=== PATIENT | female | born 1960 | race African-American/Black ===

== ENCOUNTER 2017-05-16 10:53 | Observation (INO) | payer OTHER ==
[2017-05-16 12:03] LABS: Hematocrit 41 % (35-47); Hemoglobin 13.8 g/dl (12.0-16.0); Mean Corpuscular HGB Conc 34 g/dl (31-36); Mean Corpuscular Hemoglobin 31 pg (27-31); Mean Corpuscular Volume 92 fL (80-97); Mean Platelet Volume 7 um3 (7.4-10.4); Red Blood Count 4.45 10^6/ul (4.0-5.4); Red Cell Distribution Width 15 % (10.5-15); White Blood Count 9.3 10^3/ul (3.5-10.8)
[2017-05-16 12:17] LABS: ALT 17 U/L (7-52); AST 19 U/L (13-39); Albumin 3.9 g/dL (3.2-5.2); Alkaline Phosphatase 54 U/L (34-104); Anion Gap 6 mmol/L (2-11); BUN/Creatinine Ratio 18.5 (8-20); Blood Urea Nitrogen 17 mg/dL (6-24); C Reactive Protein 2.53 mg/L (< 5.00); CO2 Carbon Dioxide 28 mmol/L (22-32); Chloride 103 mmol/L (101-111); EGFR African American 81.8 (>60); EGFR Non-African American 63.6 (>60); Globulin 3.3 g/dL (2-4); Glucose 103 mg/dL (70-100); Lipase < 10 U/L (11.0-82.0); Potassium 3.9 mmol/L (3.5-5.0); Sodium 137 mmol/L (133-145); Total Protein 7.2 g/dL (6.4-8.9)
--- NOTE | 2017-05-16 12:18 | RAD ---
HISTORY: Chest pain COMPARISONS: None TECHNIQUE: Multiple transverse and longitudinal ultrasound images were obtained of the right upper quadrant. FINDINGS: LIVER: The liver is normal in dimensions and echogenicity. Normal hepatic and portal venous blood flow is duplicated with color flow imaging. There is no gross intrahepatic biliary duct dilatation. GALLBLADDER AND EXTRAHEPATIC BILIARY DUCT: The gallbladder is normal in appearance without intraluminal stones or other soft tissue masses. There is no pericholecystic fluid or gallbladder wall thickening. The common bile duct measures a maximum diameter of 5 mm. PANCREAS: The portions of the pancreas not obscured by bowel gas are normal in appearance. RIGHT KIDNEY: The right kidney is normal in size, morphology and echogenicity. AORTA AND IVC: The visualized portions are normal in appearance and not pathologically dilated. IMPRESSION: Normal ultrasound of the right upper quadrant.
[2017-05-16] MEDS ORDERED: Iohexol 300* (CONTRAST) 10 ML SDV IV ONE (12:28)
--- NOTE | 2017-05-16 15:09 | RAD ---
Indication: Abdominal pain. Contrast: Administered 96.9 ml of OMNIPAQUE 300 mgi/ml. CT of the abdomen and pelvis was performed after oral contrast administration. Coronal and sagittal reconstructed images were obtained. The lung bases demonstrate no pleural fluid, nodules or masses. Heart is of normal size without evidence of pericardial effusion. Liver is normal in size. No focal lesions or intrahepatic ductal dilatation is noted. Spleen is normal in size. The gallbladder demonstrates no calcified gallstones. Common duct is not dilated. Pancreas demonstrates no mass or pancreatic duct dilatation. There is a nodule in the left adrenal gland measuring 16 mm likely representing an adenoma. The kidneys demonstrate symmetric nephrograms. Cortical cyst left kidney measuring up to 13 mm. No hydronephrosis of either kidney is noted. Atherosclerotic aorta is noted. No dilated loops of bowel are noted. The colon demonstrates contrast within it. No evidence of bowel obstruction. The appendix is visualized and is normal. The uterus is otherwise unremarkable. No hernias are noted. IMPRESSION: No evidence of bowel obstruction is noted. Normal appendix. No masses or fluid collections are noted.
[2017-05-16 15:21] LABS: Urine Bacteria Absent (Absent); Urine Bilirubin Negative (Negative); Urine Glucose Negative (Negative); Urine Nitrite Negative (Negative)
[2017-05-16] MEDS ORDERED: Temazepam CAP* 15 MG PO PRN (16:23)
[2017-05-16] MEDS ORDERED: Acetaminophen TAB* 325 MG PO PRN (16:23)
--- NOTE | 2017-05-17 01:38 | HP ---
CC: Dr. Pedroza * HISTORY AND PHYSICAL: DATE OF ADMISSION: 05/16/17 PRIMARY CARE PHYSICIAN: Dr. Pedroza. CHIEF COMPLAINT: Abdominal pain. HISTORY OF PRESENT ILLNESS: Kathia Bach is a 56-year-old female with history of sarcoidosis who stated that she had been having problems with abdominal cramping for the past 2 weeks since she was at the outdoor concert that lasted a couple of days. The patient stated that her stools are softer than usual, but they are regular and daily. She did not notice stool discoloration. She did not notice fevers or chills, but today when she had abdominal pain, the cramp was so severe that she was sweating. She also mentioned that the abdominal pain is radiating to her chest. On the basis of that, the ER physician requested for the patient to be placed for overnight observation to rule out angina symptoms. The patient denies shortness of breath with exertion and denies chest pain with exertion. The abdominal pain is not associated with food. She has not lost weight and her appetite had been good. PAST MEDICAL HISTORY: 1. History of sarcoidosis. 2. History of asthma as a child. 3. History of arthritis that the patient thinks is related to sarcoidosis. MEDICATIONS: Include Breo ellipta inhaler on a daily basis as needed. ALLERGIES: NONSTEROIDAL ANTI-INFLAMMATORY MEDICATIONS. FAMILY HISTORY: Positive for mother who of lung cancer, and father unknown. The patient's brother has lupus, hypertension, and diabetes. SOCIAL HISTORY: The patient smokes 2 to 3 cigarettes a day and she has been doing so ever since she turned 13. She drinks 5 glasses of alcoholic beverage a week. She denies any drug use. 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 She is single. She has no surrogate and does not wish to name one. 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 REVIEW OF SYSTEMS: Please see history of present illness. All the remaining 14 systems were reviewed with the patient and were otherwise negative. PHYSICAL EXAMINATION GENERAL: The patient is a 56-year-old female, who is in no acute distress. Alert, awake, and oriented x3. VITAL SIGNS: Blood pressure of 114/76, heart rate of 69 and regular, respiratory rate 16, oxygen saturation 97% on room air, temperature 97.8. HEENT: Head: Atraumatic, normocephalic. Eyes: Pupils equal, round, and reactive to light and accommodation. Oropharynx clear. Mucosa moist. NECK: Supple. No JVD, no bruits bilaterally. RESPIRATORY: Clear to auscultation bilaterally. CARDIOVASCULAR: Regular rate and rhythm. No murmur. ABDOMEN: Soft, nontender. Bowel sounds are hyperactive, present in all 4 quadrants. It is nontender on evaluation and no hepatomegaly palpated. EXTREMITIES: There is no edema. Pulses +2 bilaterally. No clubbing or cyanosis. NEUROLOGIC: Speech clear. Cranial nerves II through XII grossly intact. Motor strength is 5/5 bilaterally. PSYCHIATRIC: Pleasant and cooperative with evaluation with no evidence of anxiety or depression. SKIN: On evaluation of the skin, no ecchymotic areas or rashes noted. DIAGNOSTIC STUDIES/LAB DATA: Laboratory data showed white blood cell count of 9.3, hemoglobin of 13.8, hematocrit of 41, and platelets of 349. Sodium was 137, potassium 3.9, chloride 103, carbon dioxide 28, BUN 17, creatinine 0.92. Liver function tests were unremarkable. Lipase is below 10. Urinalysis showed trace ketones, trace esterase, absent bacteria. Gallbladder ultrasound, impression: "Normal ultrasound of the right upper quadrant." CT of the abdomen and pelvis obtained with contrast, impression: "No evidence of bowel obstruction is noted. Normal appendix. No masses or fluid collections are noted." EKG shows sinus bradycardia with a heart rate of 58 beats per minute with normal axis and no ST changes. The patient's C-reactive protein was 2.5. ASSESSMENT AND PLAN: 1. Crampy abdominal pain for the past 2 weeks in a patient who stated that it originally developed when she was at an outdoor concert that lasted a couple of days. At this point, there is no evidence that indicates inflammation since the patient's CRP is within normal limits. The patient's troponin had been unremarkable and EKG as well. As per the ER physician's recommendation, the patient is going to be placed on overnight observation on telemetry monitored bed with followup troponins and if it does continue to be negative, the patient is going to undergo a cardiac stress test in the morning. Furthermore, I discussed with the patient that if her cardiac stress test is negative and she is discharged home, she is to follow up with her primary care provider in regards of screening colonoscopy. 2. For DVT prophylaxis, the patient is low risk and ambulation is going to be encouraged. 3. For history of asthma, the patient is going to be observed. Currently, no wheezing appreciated. No need for inhaler. 4. The patient's code status is full. The patient wishes not to name a surrogate. TIME SPENT: Approximately 55 minutes were spent on admission of the patient, more than half the time was spent [id number] with the patient during the interview and physical exam. [id number]/[facility] #: [id number] JAKOB
--- NOTE | 2017-05-17 10:54 | RAD ---
Edited for charges. Indication: Chest pain. Myocardial perfusion scan was performed utilizing 1 day protocol. Rest myocardial perfusion was performed after intravenous injection of 10.2 mCi of technetium 99 and tetrofosmin. Treadmill stress study was performed and the maximum heart rate achieved was 95% of the maximum predicted value. There is homogeneous distribution of the radiotracer throughout the left ventricle. There is a small area of photopenia in the septum which appears to reverse on the rest images. A small area of septal reversible change should BE considered. The ventricle is normal in size. The ejection fraction at stress is 73% with no focal wall motion abnormality. IMPRESSION: There may be a small area of reversible change and photopenia in the septum. Normal ejection fraction. ASSESSMENT: Low risk Based on imaging criteria from ACC/AHA 2002 Guideline Update for the Management of Patients With Chronic Stable Angina Table 23. Noninvasive Risk Stratification. MTDD
[2017-05-17 11:20] VITALS: BP 133/84
--- NOTE | 2017-05-18 04:15 | DS ---
CC: Dr. Pedroza * DISCHARGE SUMMARY: DATE OF ADMISSION: 05/16/17 DATE OF DISCHARGE: 05/17/17 PRIMARY CARE PROVIDER: Dr. Pedroza. DISCHARGE DIAGNOSIS: Chest pain that was radiating from abdominal cramping. SECONDARY DIAGNOSES: 1. History of sarcoidosis. 2. History of asthma. MEDICATIONS: At discharge include: Breo Ellipta on a daily basis as needed. LABORATORY DATA: Performed during the hospital stay: Troponins throughout the patient's hospital stay were 0. The patient's CT abdomen and pelvis and gallbladder ultrasound as mentioned in the history of present illness and dictated by myself on 05/16/17. Nuclear medicine cardiac stress test obtained on 05/17/17 showed, impression: "There may be a small area of reversible change and photopenia at the septum. Normal ejection fraction of 73% with no focal wall motion abnormality. Assessment: Low risk." HOSPITALIZATION COURSE: Kathia Bach is a 56-year-old female with history of asthma and sarcoidosis who presented complaining of abdominal cramping that had been ongoing occasionally for the past 2 weeks. For further details of the patient's presentation please see history of present illness dictated at admission. Shortly, patient complained abdominal cramping, sometimes radiating to the chest and due to that the ER physician requested the patient to be placed on overnight observation with a stress test in the morning. The patient underwent a cardiac stress test after her troponins continued to be negative, which showed low risk and good ejection fraction. There was a small questionable area of photopenia at the septum. I discussed with the patient and usually very small areas of photopenia are not related to ischemia and they are not an indication for further cardiac intervention. The patient's troponins have been negative and she complained no chest pains throughout the hospital stay. She is recommended to follow with primary care provider and screening colonoscopy recommended in the near future. PHYSICAL EXAMINATION: At discharge unchanged from admission. [id number]/[facility] #: [id number] [facility]ICAL CENTERDonald
--- NOTE | 2017-05-19 14:27 | ED ---
aPrveen Sousa Rebecca, scribed for Amanuel Mann MD on 05/16/17 at 1137 . Abdominal Pain/Female - HPI Summary HPI Summary: Pt is a 56 y/o F who presents to ED c/o epigastric and umbilical pain with radiation to the back. Sx began 2 weeks ago and have been intermittent since onset, typically lasting a few hours. Sx usually begin at night while sleeping. Most recent episode started today at 0630. Pain is currently not present, though when present, pain is severe and characterized as cramps. Sx aggravated by movement, alleviated by nothing, unchanged by eating and BM. Additionally c/ o diaphoresis secondary to pain, nausea and chest pain. CP has been present for 2 weeks, intermittently, described as "it feels like the pain you get when you exercise." Denies dysuria, urine frequency and hematuria. Has not had a cardiac workup for current pain. Last stress test a few years ago. FHx "heart issues" ( brother), lupus and HTN. - History of Current Complaint Chief Complaint: EDAbdPain Stated Complaint: ABD PAIN Time Seen by Provider: 05/16/17 11:25 Hx Obtained From: Patient Onset/Duration: Lasting Weeks - 2 weeks, Still Present Timing: Intermittent Episode Lasting - Hours Severity Initially: Severe Severity Currently: None Pain Intensity: 0 Pain Scale Used: 0-10 Numeric Location: Epigastric, Umbilical Radiates: Yes Radiates to: Back Character: Cramping Aggravating Factor(s): Movement Alleviating Factor(s): Nothing Associated Signs and Symptoms: Positive: Diaphoresis, Chest Pain - Intermittent for 2 weeks, Nausea. Negative: Urinary Symptoms Allergies/Adverse Reactions: Allergies Allergy/AdvReac Type Severity Reaction Status Date / Time NSAIDs Allergy Anaphylatic Verified 05/16/17 11:31 Shock CATS Allergy Severe Wheezing Uncoded 05/16/17 11:31 PMH/Surg Hx/FS Hx/Imm Hx Endocrine/Hematology History: Reports: Hx Blood Transfusions - at , Other Endocrine/Hematological Disorders - angioedema Denies: Hx Anticoagulant Therapy, Hx Diabetes, Hx Thyroid Disease, Hx Anemia Cardiovascular History: Reports: Other Cardiovascular Problems/Disorders - SARCOIDOSIS RECENTLY DX Denies: Hx Angina, Hx Congestive Heart Failure, Hx Coronary Artery Disease, Hx Hypercholesterolemia, Hx Hypertension, Hx Myocardial Infarction, Hx Pacemaker /ICD, Hx Valvular Heart Disease Respiratory History: Reports: Hx Asthma Denies: Hx Chronic Obstructive Pulmonary Disease (COPD) GI History: Denies: Hx Ulcer Musculoskeletal History: Reports: Other Musculoskeletal History - cervical spine DDD Sensory History: Reports: Hx Contacts or Glasses, Hx Vision Problem Denies: Hx Hearing Aid Opthamlomology History: Reports: Hx Contacts or Glasses, Hx Vision Problem Neurological History: Reports: Hx Headaches Psychiatric History: Denies: Hx Panic Disorder, Hx Substance Abuse - Cancer History Hx Chemotherapy: No Hx Radiation Therapy: No Infectious Disease History: No Infectious Disease History: Denies: Hx Clostridium Difficile, Hx Hepatitis, Hx Human Immunodeficiency Virus (HIV), Hx of Known/Suspected MRSA, Hx Shingles, Hx Tuberculosis, Hx Known/ Suspected VRE, Hx Known/Suspected VRSA, History Other Infectious Disease, Traveled Outside the [place] in Last 30 Days - Family History Known Family History: Positive: Hypertension, Other - "heart issues" (brother), lupus Family History: No FHx of blood clots, IBS, Crohn's - Social History Alcohol Use: Occasionally Substance Use Type: Reports: None Hx Tobacco Use: No Smoking Status (MU): Former Smoker Have You Smoked in the Last Year: No Review of Systems Positive: Skin Diaphoresis. Negative: Fever, Chills Negative: Erythema Negative: Sore Throat Positive: Chest Pain - Intermittent for 2 weeks Negative: Shortness Of Breath, Cough Positive: Abdominal Pain - Epigastric and umiblical with radiation to the back, Nausea. Negative: Vomiting Negative: dysuria, frequency, hematuria Negative: Myalgia, Edema Negative: Rash Neurological: Other - Negative dizziness All Other Systems Reviewed And Are Negative: Yes Physical Exam - Summary Physical Exam Summary: Constitutional: Well-developed, Well-nourished, Alert. (-) Distressed Skin: Warm, Dry HENT: Normocephalic; Atraumatic Eyes: Conjunctiva normal Neck: Musculoskeletal ROM normal neck. (-) JVD, (-) Stridor, (-) Tracheal deviation Cardio: Rhythm regular, rate normal, Heart sounds normal; Intact distal pulses; The pedal pulses are 2+ and symmetric. Radial pulses are 2+ and symmetric. (-) Murmur Pulmonary/Chest wall: Effort normal. (-) Respiratory distress, (-) Wheezes, (-) Rales Abd: Soft, (-) Tenderness, (-) Distension, (-) Guarding, (-) Rebound Musculoskeletal: (-) Edema Lymph: (-) Cervical adenopathy Neuro: Alert, Oriented x3 Psych: Mood and affect Normal Triage Information Reviewed: Yes Vital Signs On Initial Exam: Initial Vitals Temp Pulse Resp BP Pulse Ox 97.8 F 69 18 117/69 100 05/16/17 11:02 05/16/17 11:02 05/16/17 11:02 05/16/17 11:02 05/16/17 11:02 Vital Signs Reviewed: Yes Diagnostics - Vital Signs Vital Signs Temp Pulse Resp BP Pulse Ox 05/16/17 11:02 97.8 F 69 18 117/69 100 - Laboratory Result Diagrams: 05/16/17 11:43 05/16/17 11:43 Lab Statement: Any lab studies that have been ordered have been reviewed, and results considered in the medical decision making process. - CT CT Abd/Pel CT Interpretation: No Acute Changes - No evidence of bowel obstruction is noted. Normal appendix. No masses or fluid collections are noted. CT Interpretation Completed By: Radiologist - Ultrasound No standard instances Ultrasound Interpretation: No Acute Changes - Gallbladder US: Normal ultrasound of the right upper quadrant. Ultrasound Interpretation Completed By: Radiologist - EKG 1225 Cardiac Rate: Bradycardia - 58 bpm EKG Rhythm: Sinus Bradycardia EKG Interpretation: T wave flattening in the lateral leads, No STEMI Re-Evaluation - Re-Evaluation First Eval Re-Evaluation Time: 15:23 Change: Improved Comment: Pt reports she developed the chest pain a half toyin hour before arrival and is currently chest pain free. The upper abdominal pain with diaphoresis developed this morning at 0630. Her brother has a Hx of significant CAD. Second Eval Re-Evaluation Time: 15:50 Change: Unchanged Comment: Reaffirmed with the pt that she is willing to stay. Abdominal Pain Fem Course/Dx - Course Course Of Treatment: Pt is a 56 y/o F who presents to ED c/o intermittent epigastric and umbilical pain with radiation to the back for 2 weeks, charcaterized as crmaps. Sx usually begin at night while sleeping. Pain is currently not present, though when present, pain is severe. Sx aggravated by movement, unchanged by eating and BM. Additionally c/o diaphoresis secondary to pain, nausea and chest pain. CP has been present for 2 weeks, intermittently, described as "similar to the pain from having worked out." Denies dysuria, urine frequency and hematuria. Has not had a cardiac workup for current pain. Last stress test a few years ago. FHx "heart issues" (brother), lupus and HTN. Lipase <10. Gallbladder US and CT Abd/Pel reveal no acute findings. EKG reveals sinus amrita with no STEMI. Discussed care of pt with Dr. Hannon, discussing having the patient admitted for a cardiac workup with hospitalist services. Discussed care of pt with Dr. Beatrice Bello at 1538 who accepts pt for admission. She will be admitted to hospitalist services with Dx of abdominal pain and chest pain, unspecified. The patient understands and agrees. Patient medications reviewed this visit. - Diagnoses Provider Diagnoses: Abdominal pain, Chest pain, unspecified - Provider Notifications Discussed Care Of Patient With: Estefanía Hannon Time Discussed With Above Provider: 15:30 Instructed by Provider To: Other - Discussed having the patient admitted for a cardiac workup with hospitalist services. Discussed care of pt with Dr. Beatrice Bello at 1538 who accepts pt for admission. Discharge - Discharge Plan Condition: Stable Disposition: ADMITTED TO [facility] Referrals: Zi Pedroza MD [Primary Care Provider] - The documentation as recorded by the Parveen lorenzo Rebecca accurately reflects the service I personally performed and the decisions made by me, Amanuel Mann MD.
== END 2017-05-17 11:55 | disposition home or self-care (01) ==
LOC: ED 10:53 → MEDTELE 15:40
PROVIDERS: ADMIT Internal Medicine; ATTEND Internal Medicine
DX: R07.9 Chest pain, unspecified (principal); R10.84 Generalized abdominal pain; R00.1 Bradycardia, unspecified; F17.210 Nicotine dependence, cigarettes, uncomplicated; D86.9 Sarcoidosis, unspecified; M19.90 Unspecified osteoarthritis, unspecified site
CPT/HCPCS: 36415; 74177; 76705; 78452; 80053; 81003; 81015; 83605; 83690; 84484; 85025; 86140; 87086; 93005; 93017; 99284; 99406; A9502; G0378; Q9967

== ENCOUNTER → 2018-11-27 23:53 | Emergency (ER) | payer OTHER ==
[~2018-11-27 23:53] MED LIST: Hydrocortisone INJ* 100 MG VIAL IV ONE; Ketorolac INJ* 30 MG/ML 1 ML VIAL IV PUSH ONE; Metoclopramide IV* 5 MG/ML 2 ML VIAL IV SLOW PU ONE; Morphine VIAL* 10 MG/ML 1 ML VIAL IV ONE; NS 0.9% 1000 ML** 1,000 ML IV ONE; diPHENhydraMINE PO* 25 MG PO ONE
--- NOTE | 2018-11-28 00:51 | ED ---
Headache - HPI Summary HPI Summary: This patient is a 58 year old F presenting to ED with a chief complaint of R- sided headache and R eye pain since earlier today. The CC is described as my head feels like its going to explode right now. She has had an episode like this before about 2 months ago and states that it usually happens whenever she has an autoimmune flare up. The patient rates the pain 8/10 in severity. Symptoms aggravated by chewing. Symptoms alleviated by prednisone drops. Patient reports nausea and photophobia. Her R eye also tears up and is erythematous. Patient denies vomiting and vision loss. Since April 2018, her R eye seems to get swollen and isnt open all the way. She has seen an specialized language instructor before and they say that it doesnt seem to be an issue with her eye and doesnt know what is wrong with her. The patient reports that her eye pressure is alright whenever she sees her and her PCP. Her PCP says that she has an autoimmune disease but doesnt specify. She can see through her R eye but it erythematous. She usually is given prednisone drops (1x in the morning) and her headache goes away within 2 hours. She takes Tylenol, Tumeric, and OTC antihistamine. - History Of Current Complaint Chief Complaint: EDHeadache Stated Complaint: HEADACHE Time Seen by Provider: 11/28/18 00:31 Hx Obtained From: Patient Onset/Duration: Sudden Onset, Started hours ago, Still Present Initially Headache Was: Initial Pain Scale(0-10)= - 8/10 Currently Pain Is: Current Pain Scale(0-10)= - 8/10 Timing: Constant Location of Headache: Other: - R-sided Aggravating Factor: Bright Lights, Other - chewing Allevating Factors: Medication - prednisone drops - Allergies/Home Medications Allergies/Adverse Reactions: Allergies Allergy/AdvReac Type Severity Reaction Status Date / Time mold Allergy Rash Verified 11/27/18 23:59 NSAIDS (Non-Steroidal Allergy See Comment Verified 11/27/18 23:59 Anti-Inflamma CATS Allergy Severe Wheezing Uncoded 11/27/18 23:59 enviromental Allergy Wheezing Uncoded 11/27/18 23:59 Home Medications: Home Medications Tylenol 650 mg PO Q6HR PRN 11/28/18 [History Confirmed 11/28/18] PMH/Surg Hx/FS Hx/Imm Hx Endocrine/Hematology History: Reports: Hx Blood Transfusions - at , Other Endocrine/Hematological Disorders - angioedema Denies: Hx Anticoagulant Therapy, Hx Diabetes, Hx Thyroid Disease, Hx Anemia Cardiovascular History: Reports: Other Cardiovascular Problems/Disorders - SARCOIDOSIS RECENTLY DX Denies: Hx Angina, Hx Congestive Heart Failure, Hx Coronary Artery Disease, Hx Hypercholesterolemia, Hx Hypertension, Hx Myocardial Infarction, Hx Pacemaker /ICD, Hx Valvular Heart Disease Respiratory History: Reports: Hx Asthma Denies: Hx Chronic Obstructive Pulmonary Disease (COPD) GI History: Denies: Hx Ulcer Musculoskeletal History: Reports: Other Musculoskeletal History - cervical spine DDD Sensory History: Reports: Hx Contacts or Glasses, Hx Vision Problem Denies: Hx Hearing Aid, Hx Hearing Problem Opthamlomology History: Reports: Hx Contacts or Glasses, Hx Vision Problem Neurological History: Reports: Hx Headaches Psychiatric History: Denies: Hx Panic Disorder, Hx Substance Abuse - Cancer History Hx Chemotherapy: No Hx Radiation Therapy: No - Surgical History Surgery Procedure, Year, and Place: warts surgically removed 30 years ago Infectious Disease History: No Infectious Disease History: Denies: Hx Clostridium Difficile, Hx Hepatitis, Hx Human Immunodeficiency Virus (HIV), Hx of Known/Suspected MRSA, Hx Shingles, Hx Tuberculosis, Hx Known/ Suspected VRE, Hx Known/Suspected VRSA, History Other Infectious Disease, Traveled Outside the [place] in Last 30 Days - Family History Known Family History: Positive: Hypertension, Other - "heart issues" (brother), lupus Negative: Cardiac Disease Family History: No FHx of blood clots, IBS, Crohn's - Social History Alcohol Use: Occasionally Alcohol Amount: 5-7 drinks per week Substance Use Type: Reports: None Hx Tobacco Use: No Smoking Status (MU): Former Smoker Type: Cigarettes Amount Used/How Often: < 1/2 ppd Length of Time of Smoking/Using Tobacco: 40 years,has quit in [place] for few years. Have You Smoked in the Last Year: No Review of Systems Positive: Photophobia, Erythema - of R eye, Other - R eye tears up, R eye seems to get swollen and isnt open all the way Positive: Nausea. Negative: Vomiting Positive: Headache - R-sided All Other Systems Reviewed And Are Negative: Yes Physical Exam - Summary Physical Exam Summary: VITAL SIGNS: Reviewed. GENERAL: Patient is a well-developed and nourished FEMALE who seems to be uncomfortable due to the headache. Patient is not in any acute respiratory distress. HEAD AND FACE: No signs of trauma. No ecchymosis, hematomas or skull depressions. No sinus tenderness. Tenderness of R temporal area. EYES: PERRLA, EOMI x 2, no nystagmus. Bilateral pinpoint pupal and R conjunctiva injection with tearing or lacrimation of R eye. EARS: Hearing grossly intact. Ear canals and tympanic membranes are within normal limits. MOUTH: Oropharynx within normal limits. NECK: Supple, trachea is midline, no adenopathy, no JVD, no carotid bruit, no c- spine tenderness, neck with full ROM. CHEST: Symmetric, no tenderness at palpation LUNGS: Clear to auscultation bilaterally. No wheezing or crackles. CVS: Regular rate and rhythm, S1 and S2 present, no murmurs or gallops appreciated. ABDOMEN: Soft, non-tender. No signs of distention. No rebound no guarding, and no masses palpated. Bowel sounds are normal. EXTREMITIES: FROM in all major joints, no edema, no cyanosis or clubbing. NEURO: Alert and oriented x 3. No acute neurological deficits. Speech is normal and follows commands. SKIN: Dry and warm Triage Information Reviewed: Yes Vital Signs On Initial Exam: Initial Vitals Temp Pulse Resp BP Pulse Ox 97.8 F 95 16 167/110 96 11/27/18 23:55 11/27/18 23:55 11/27/18 23:55 11/27/18 23:55 11/27/18 23:55 Vital Signs Reviewed: Yes Diagnostics - Vital Signs Vital Signs Temp Pulse Resp BP Pulse Ox 11/27/18 23:55 97.8 F 95 16 167/110 96 - Laboratory Result Diagrams: 11/28/18 00:53 11/28/18 00:53 Lab Statement: Any lab studies that have been ordered have been reviewed, and results considered in the medical decision making process. Re-Evaluation - Re-Evaluation First Eval Re-Evaluation Time: 02:03 Comment: I discussed what kinds of allergies the patient has to NSAIDs, but she is not clear. However, she has taken Motrin in the past. She reports her headache is dull, but still there. Second Eval Re-Evaluation Time: 03:27 Change: Improved Comment: Discussed plan for discharge. Headache Course/Dx - Course Assessment/Plan: This patient is a 58 year old F presenting to ED with a chief complaint of R-sided headache and R eye pain since earlier today. The patient's condition has improved in the ED course. The patients blood work, including CRP , is normal. CT is normal. The patient will be discharged with instructions to follow up with her PCP. Patient understands and agrees with this plan. - Diagnoses Differential Diagnosis/HQI/PQRI: Other - headache Provider Diagnoses: Headache Discharge - Sign-Out/Discharge Documenting (check all that apply): Patient Departure - discharge Patient Received Moderate/Deep Sedation with Procedure: No - Discharge Plan Condition: Stable Disposition: HOME Patient Education Materials: Acute Headache (ED) Referrals: Zi Pedroza MD [Primary Care Provider] - (Follow up in 1-2 days.) Additional Instructions: RETURN TO THE EMERGENCY DEPARTMENT FOR CHANGING OR WORSENING SYMPTOMS. FOLLOW UP WITH PCP IN 1-2 DAYS. - Attestation Statements Document Initiated by Scribe: Yes Documenting Scribe: Hank Woody Provider For Whom Scribe is Documenting (Include Credential): Luda Jensen MD Scribe Attestation: Hank Sousa, scribed for Luda Jensen MD on 11/28/18 at 0325. Status of Scribe Document: Ready
[2018-11-28 01:01] LABS: ABS Basophils 0.1 10^3/ul (0-0.2); ABS Eosinophils 0.3 10^3/ul (0-0.6); ABS Lymphocytes 2.9 10^3/ul (1.0-4.8); ABS Monocytes 0.5 10^3/ul (0-0.8); ABS Neutrophils 1.3 10^3/ul (1.5-7.7); ABS Nucleated RBC 0 10^3/ul; Eosinophil % 6.5 %; Hematocrit 40 % (35-47); Hemoglobin 13.5 g/dl (12.0-16.0); Lymphocyte % 57.2 %; Mean Corpuscular HGB Conc 34 g/dl (31-36); Mean Corpuscular Hemoglobin 30 pg (27-31); Mean Corpuscular Volume 90 fL (80-97); Mean Platelet Volume 6.8 fL (7.4-10.4); Nucleated Red Blood Cells % 0.2; Platelet Count 333 10^3/ul (150-450); Red Blood Count 4.47 10^6/ul (4.00-5.40); Red Cell Distribution Width 14 % (10.5-15)
[2018-11-28 01:10] LABS: Activated Partial Thrombo Time 31.3 seconds (26.0-36.3); INR 0.9 (0.77-1.02)
[2018-11-28 01:19] LABS: Albumin 4.2 g/dL (3.2-5.2); Albumin/Globulin Ratio 1.4 (1-3); BUN/Creatinine Ratio 21.4 (8-20); C Reactive Protein 1.39 mg/L (<8.01); Calcium 9.1 mg/dL (8.6-10.3); EGFR Non-African American 58.7 (>60); Globulin 2.9 g/dL (2-4); Potassium 3.6 mmol/L (3.5-5.0); Total Bilirubin 0.6 mg/dL (0.2-1.0); Total Protein 7.1 g/dL (6.4-8.9)
[2018-11-28 04:02] VITALS: BP 137/95
== END | disposition home or self-care (01) ==
LOC: ED 23:53
DX: R51 Headache (principal); R11.0 Nausea; Z88.6 Allergy status to analgesic agent; Z87.891 Personal history of nicotine dependence
CPT/HCPCS: 36415; 70450; 80053; 85025; 85610; 85730; 86140; 96374; 96375; 96376; 99283; A9270-GY; J1720; J1885; J2270; J2765

== ENCOUNTER 2019-07-16 10:46 | Emergency (ER) | payer OTHER ==
[2019-07-16 11:35] LABS: ABS Basophils 0.1 10^3/ul (0-0.2); ABS Eosinophils 0.4 10^3/ul (0-0.6); ABS Lymphocytes 2.8 10^3/ul (1.0-4.8); ABS Monocytes 0.5 10^3/ul (0-0.8); Eosinophil % 6.3 %; Hematocrit 42 % (35-47); Hemoglobin 14.4 g/dL (12.0-16.0); Lymphocyte % 48.8 %; Mean Corpuscular HGB Conc 34 g/dL (31-36); Mean Corpuscular Hemoglobin 31 pg (27-31); Mean Corpuscular Volume 90 fL (80-97); Nucleated Red Blood Cells % 0.1; Platelet Count 330 10^3/uL (150-450); Red Blood Count 4.65 10^6 /uL (3.70-4.87); Red Cell Distribution Width 15 % (10-15); White Blood Count 5.7 10^3/uL (3.5-10.8)
[2019-07-16 11:55] LABS: ALT 13 U/L (7-52); AST 19 U/L (13-39); Albumin 4.4 g/dL (3.2-5.2); Albumin/Globulin Ratio 1.7 (1-3); Alkaline Phosphatase 56 U/L (34-104); Anion Gap 6 mmol/L (2-11); BUN/Creatinine Ratio 23.3 (8-20); Blood Urea Nitrogen 21 mg/dL (6-24); C Reactive Protein < 1.00 mg/L (<8.01); CO2 Carbon Dioxide 28 mmol/L (22-32); Calcium 9.4 mg/dL (8.6-10.3); Chloride 103 mmol/L (101-111); EGFR African American 78.1 (>60); EGFR Non-African American 64.5 (>60); Globulin 2.6 g/dL (2-4); Glucose 123 mg/dL (70-100); Potassium 4.1 mmol/L (3.5-5.0); Sodium 137 mmol/L (135-145)
[2019-07-16 12:01] LABS: HCG Pregnancy 1.11 mIU/mL
--- NOTE | 2019-07-16 12:43 | ED ---
HPI Chest Pain - HPI Summary HPI Summary: Patient is a 59 y/o F presenting to [facility] with chief complaint of left anterior chest pain. She states that she was calling her PCP to set up an appointment and had noted that she had been having chest pain. After further questions, she was advised to come to ED for evaluation. She states that she has been having intermittent episodes of chest pain for the past week. Pain is characterized as an ache and "not severe". Episodes last a few minutes typically. She endorses SOB but relates this to her emphysema. Patient additionally endorses some intermittent light-headedness. No prior similar episodes are reported. PMHx of HTN, HLD and diabetes are denied. PMHx of asthma endorsed. She is a former smoker of 3 years. Occasional alcohol consumption is noted. No substance usage reported. She denies FMHx of [place] at her age. FMHx of HTN and diabetes is endorsed, no Hx of HLD reported. Home medications and allergies are reviewed. - History of Current Complaint Chief Complaint: EDChestWallPain Time Seen by Provider: 07/16/19 12:28 Hx Obtained From: Patient Onset/Duration: Started Weeks Ago, Still Present Timing: Intermittent, Lasting Minutes Current Severity: Mild Pain Intensity: 2 Pain Scale Used: 0-10 Numeric Chest Pain Location: Left Anterior Character: Dull/Aching Associated Signs and Symptoms: Positive: Chest Pain, Shortness of Breath, Lightheadedness - Additional Pertinent History Primary Care Physician: [id number] - Allergy/Home Medications Allergies/Adverse Reactions: Allergies Allergy/AdvReac Type Severity Reaction Status Date / Time mold Allergy Rash Verified 11/27/18 23:59 CATS Allergy Severe Wheezing Uncoded 11/27/18 23:59 enviromental Allergy Wheezing Uncoded 11/27/18 23:59 Home Medications: Home Medications Naproxen TAB* [Naprosyn 250 mg TAB*] 500 mg PO BID 07/16/19 [History Confirmed 07/16/19] PMH/Surg Hx/FS Hx/Imm Hx Endocrine/Hematology History: Reports: Hx Blood Transfusions - at , Other Endocrine/Hematological Disorders - angioedema Denies: Hx Anticoagulant Therapy, Hx Diabetes, Hx Thyroid Disease, Hx Anemia Cardiovascular History: Reports: Other Cardiovascular Problems/Disorders - SARCOIDOSIS RECENTLY DX Denies: Hx Angina, Hx Congestive Heart Failure, Hx Coronary Artery Disease, Hx Hypercholesterolemia, Hx Hypertension, Hx Myocardial Infarction, Hx Pacemaker /ICD, Hx Valvular Heart Disease Respiratory History: Reports: Hx Asthma Denies: Hx Chronic Obstructive Pulmonary Disease (COPD) GI History: Denies: Hx Ulcer Musculoskeletal History: Reports: Other Musculoskeletal History - cervical spine DDD Sensory History: Reports: Hx Contacts or Glasses, Hx Vision Problem Denies: Hx Hearing Aid, Hx Hearing Problem Opthamlomology History: Reports: Hx Contacts or Glasses, Hx Vision Problem Neurological History: Reports: Hx Headaches Psychiatric History: Denies: Hx Panic Disorder, Hx Substance Abuse - Cancer History Hx Chemotherapy: No Hx Radiation Therapy: No - Surgical History Surgery Procedure, Year, and Place: warts surgically removed 30 years ago Infectious Disease History: No Infectious Disease History: Denies: Hx Clostridium Difficile, Hx Hepatitis, Hx Human Immunodeficiency Virus (HIV), Hx of Known/Suspected MRSA, Hx Shingles, Hx Tuberculosis, Hx Known/ Suspected VRE, Hx Known/Suspected VRSA, History Other Infectious Disease, Traveled Outside the [place] in Last 30 Days - Family History Known Family History: Positive: Hypertension, Other - "heart issues" (brother), lupus Negative: Cardiac Disease Family History: No FHx of blood clots, IBS, Crohn's - Social History Alcohol Use: Occasionally Alcohol Amount: 5-7 drinks per week Substance Use Type: Reports: None Hx Tobacco Use: No Smoking Status (MU): Former Smoker Type: Cigarettes Amount Used/How Often: < 1/2 ppd Length of Time of Smoking/Using Tobacco: 40 years,has quit in [place] for few years. Have You Smoked in the Last Year: No Review of Systems Positive: Chest Pain Positive: Shortness Of Breath Neurological: Other - positive - light-headedness All Other Systems Reviewed And Are Negative: Yes Physical Exam - Summary Physical Exam Summary: VITAL SIGNS: Reviewed. GENERAL: Patient is a well-developed and nourished female who is lying comfortable in the stretcher. Patient is not in any acute respiratory distress. HEAD AND FACE: No signs of trauma. No ecchymosis, hematomas or skull depressions. No sinus tenderness. EYES: PERRLA, EOMI x 2, No injected conjunctiva, no nystagmus. EARS: Hearing grossly intact. Ear canals and tympanic membranes are within normal limits. MOUTH: Oropharynx within normal limits. NECK: Supple, trachea is midline, no adenopathy, no JVD, no carotid bruit, no c- spine tenderness, neck with full ROM. CHEST: Symmetric, no tenderness at palpation. LUNGS: Clear to auscultation bilaterally. No wheezing or crackles. CVS: Regular rate and rhythm, S1 and S2 present, no murmurs or gallops appreciated. ABDOMEN: Soft, non-tender. No signs of distention. No rebound, no guarding, and no masses palpated. Bowel sounds are normal. EXTREMITIES: FROM in all major joints, no edema, no cyanosis or clubbing. NEURO: Alert and oriented x 3. No acute neurological deficits. Speech is normal and follows commands. SKIN: Dry and warm. Triage Information Reviewed: Yes Vital Signs On Initial Exam: Initial Vitals Temp Pulse Resp BP Pulse Ox 97.8 F 75 18 148/79 100 07/16/19 10:51 07/16/19 10:51 07/16/19 10:51 07/16/19 10:51 07/16/19 10:51 Vital Signs Reviewed: Yes Procedures - Sedation Patient Received Moderate/Deep Sedation with Procedure: No Diagnostics - Vital Signs Vital Signs Temp Pulse Resp BP Pulse Ox 07/16/19 10:51 97.8 F 75 18 148/79 100 - Laboratory Lab Results: Lab Results 07/16/19 07/16/19 07/16/19 Range/Units 11:29 11:29 11:29 WBC 5.7 (3.5-10.8) 10^3/uL RBC 4.65 (3.70-4.87) 10^6 /uL Hgb 14.4 (12.0-16.0) g/dL Hct 42 (35-47) % MCV 90 (80-97) fL MCH 31 (27-31) pg MCHC 34 (31-36) g/dL RDW 15 (10-15) % Plt Count 330 (150-450) 10^3/uL MPV 7.0 L (7.4-10.4) fL Neut % (Auto) 35.3 % Lymph % (Auto) 48.8 % Brewster % (Auto) 8.6 % Eos % (Auto) 6.3 % Baso % (Auto) 1.0 % Absolute Neuts (auto) 2.0 (1.5-7.7) 10^3/ul Absolute Lymphs (auto) 2.8 (1.0-4.8) 10^3/ul Absolute Monos (auto) 0.5 (0-0.8) 10^3/ul Absolute Eos (auto) 0.4 (0-0.6) 10^3/ul Absolute Basos (auto) 0.1 (0-0.2) 10^3/ul Absolute Nucleated RBC 0.0 10^3/ul Nucleated RBC % 0.1 Sodium 137 (135-145) mmol/L Potassium 4.1 (3.5-5.0) mmol/L Chloride 103 (101-111) mmol/L Carbon Dioxide 28 (22-32) mmol/L Anion Gap 6 (2-11) mmol/L BUN 21 (6-24) mg/dL Creatinine 0.90 (0.51-0.95) mg/dL Est GFR ( Amer) 78.1 (>60) Est GFR (Non-Af Amer) 64.5 (>60) BUN/Creatinine Ratio 23.3 H (8-20) Glucose 123 H (70-100) mg/dL Lactic Acid 1.3 (0.5-2.0) mmol/L Calcium 9.4 (8.6-10.3) mg/dL Total Bilirubin 0.70 (0.2-1.0) mg/dL AST 19 (13-39) U/L ALT 13 (7-52) U/L Alkaline Phosphatase 56 (34-104) U/L Troponin I 0.00 (<0.04) ng/mL C-Reactive Protein < 1.00 (<8.01) mg/L Total Protein 7.0 (6.4-8.9) g/dL Albumin 4.4 (3.2-5.2) g/dL Globulin 2.6 (2-4) g/dL Albumin/Globulin Ratio 1.7 (1-3) Lipase 14 (11.0-82.0) U/L Beta HCG, Quant 1.11 mIU/mL Result Diagrams: 07/16/19 11:29 07/16/19 11:29 Lab Statement: Any lab studies that have been ordered have been reviewed, and results considered in the medical decision making process. - EKG 1046 Cardiac Rate: NL - rate of 76 BPM EKG Rhythm: Sinus Rhythm EKG Comparison: No Significant Change - compared to 05/16/19 Summary of EKG Findings: EKG impression: NSR [address] depression in I, II , V4-V5, similar to the EKG done on 05/16/19. Re-Evaluation - Re-Evaluation First Eval Re-Evaluation Time: 15:32 Change: Improved Comment: Patient reports that all symptoms have resolved. Because the patient has no significant comorbidities and no family history of cardiovascular disease at his age the patient will be discharged home with follow up of PMD. I discussed all the findings and test results with the patient. Patient was instructed to return to the emergency room immediately if any of the symptoms return or worsen. Patient understands and agrees. Plan of care was discussed with the patient and patient understands and agrees. All questions were answered at patient satisfaction. There were no further complaints or concerns. PE before discharge: CVS: S1 and S2 present. No murmurs appreciated. Abdominal exam before discharge: Soft, non-tender. No signs of distention. No rebound no guarding, and no masses palpated. Bowel sounds are normal. Patient is alert and oriented x 3. Patient is hemodynamically stable. Chest Pain Course/Dx - Course Assessment/Plan: Patient is a 59-year-old female who presents to the medicine department with a chief complaint of having chest pain intermittently. Blood test results without any significant abnormality except for glucose of 123. Troponin # 1 is 0.00. EKG impression: NSR [address] depression in I, II, V4-V5, similar to the EKG done on 05/16/19. Patient continues to be asymptomatic. Patient denies any chest pain. Troponin # 2: is 0.00. Heart score is 1 and LORENZA score is 1. Patient reports that all symptoms have resolved. Because the patient has no significant comorbidities and no family history of cardiovascular disease at his age the patient will be discharged home with follow up of PMD. I discussed all the findings and test results with the patient. Patient was instructed to return to the emergency room immediately if any of the symptoms return or worsen. Patient understands and agrees. Plan of care was discussed with the patient and patient understands and agrees. All questions were answered at patient satisfaction. There were no further complaints or concerns. PE before discharge: CVS: S1 and S2 present. No murmurs appreciated. Abdominal exam before discharge: Soft, non-tender. No signs of distention. No rebound no guarding, and no masses palpated. Bowel sounds are normal. Patient is alert and oriented x 3. Patient is hemodynamically stable. - Diagnoses Provider Diagnoses: Atypical chest pain Discharge ED - Sign-Out/Discharge Documenting (check all that apply): Patient Departure - discharge - Discharge Plan Condition: Stable Disposition: HOME Patient Education Materials: Chest Pain (ED) Referrals: Zi Pedroza MD [Primary Care Provider] - 3 Days Additional Instructions: PLEASE RETURN TO ED FOR ANY NEW OR WORSENING SYMPTOMS. PLEASE FOLLOW UP WITH YOUR PRIMARY CARE PHYSICIAN WITHIN THREE DAYS. - Billing Disposition and Condition Condition: STABLE Disposition: Home - Attestation Statements Document Initiated by Guilherme: Yes Documenting Scribe: DALLIN MONGE Provider For Whom Guilherme is Documenting (Include Credential): YOSHI MENJIVAR MD Scribe Attestation: DALLIN Sousa, scribed for YOSHI MENJIVAR MD on 07/18/19 at 0921. Scribe Documentation Reviewed: Yes Provider Attestation: The documentation as recorded by the DALLIN lorenzo accurately reflects the service I personally performed and the decisions made by YOSHI mtz MD Status of Scribe Document: Viewed
[2019-07-16 16:25] VITALS: BP 154/72
== END 2019-07-16 16:25 | disposition home or self-care (01) ==
LOC: ED 10:46
DX: R07.89 Other chest pain (principal); J45.909 Unspecified asthma, uncomplicated; M50.30 Other cervical disc degeneration, unspecified cervical region; Z87.891 Personal history of nicotine dependence; Z79.899 Other long term (current) drug therapy
CPT/HCPCS: 36415; 80053; 83605; 83690; 84484; 84702; 85025; 86140; 93005; 99282